=== PATIENT | female | born 1985 | race Caucasian/White ===

== ENCOUNTER → 2020-02-28 | Outpatient (CLI) | payer OTHER ==
--- NOTE | 2020-02-28 16:22 | KCIC ---
Examination: MRI of the right tibia and fibula and right ankle without contrast HISTORY: History of right leg pain, right ankle pain COMPARISON: None available TECHNIQUE: Multiplanar, multisequence MR imaging of the right lower leg was performed including the tibia and fibula and the right ankle. FINDINGS: The alignment of the tibia and fibula grossly appears unremarkable. There is no acute fracture identified. The attachment of the Achilles tendon to the calcaneus grossly appears intact. The alignment of the plantar fascia to the inferior aspect of the calcaneus grossly appears intact. The alignment of the tarsal bones grossly appears intact. Fat is present within the sinus tarsi. The deltoid ligament, anterior and posterior tibiofibular, talofibular ligament, calcaneal fibular ligament appear intact. There is a 1.5 cm multiloculated cystic structure identified extending posterior likely from the posterior talofibular ligament likely a ganglion cyst. IMPRESSION: 1. 1.5 cm multiloculated cystic structure extending posteriorly from the posterior talofibular ligament likely a ganglion cyst. Electronically signed by: William Quiroz MD (02/28/2020 4:19 PM) [id number]
== END | disposition home or self-care (01) ==
LOC: KCIC MRI 14:25
PROVIDERS: ATTEND Family Medicine
DX: M25.571 Pain in right ankle and joints of right foot (principal)
CPT/HCPCS: 73718; 73721